=== PATIENT | female | born 1955 | race Caucasian/White ===

== ENCOUNTER → 2016-05-23 | Outpatient (CLI) | payer BC ==
[~2016-05-23] MED LIST: ONDA4TAB10 SL; TRAZ50TA35 PO
[2016-05-23 13:59] LABS: ALT/SGPT 19 U/L (12-78); AST/SGOT 14 U/L (15-37); BLOOD UREA NITROGEN 14 mg/dl (7-18); BUN/CREATININE RATIO 15.3 (10-20); CALCIUM 9.2 mg/dl (8.5-10.1); CARBON DIOXIDE 29 mmol/L (21-32); CHLORIDE 107 mmol/L (98-107); CREATININE 0.91 mg/dl (0.60-1.20); GLUCOSE 95 mg/dl (70-99); POTASSIUM 4.5 mmol/L (3.5-5.1); SODIUM 141 mmol/L (136-145)
[2016-05-23 14:01] LABS: CHOLESTEROL 201 mg/dl (0-200); CHOLESTEROL/HDL RATIO 3.7; HDL CHOLESTEROL 55 mg/dl; LDL CHOLESTEROL CALCULATED 122 mg/dl; PHOSPHORUS 3.8 mg/dl (2.5-4.9); TRIGLYCERIDES 120 mg/dl (0-150); VERY LOW DENSITY LIPOPROT CALC 24 mg/dl
== END | disposition home or self-care (01) ==
LOC: C.LABMFLN 07:43
PROVIDERS: ATTEND Family Medicine
DX: E78.5 Hyperlipidemia, unspecified (principal)

== ENCOUNTER 2016-11-01 23:09 | Emergency (ER) | payer BC ==
[~2016-11-01] VITALS: Ht 154.9 cm; Wt 61.9 kg
[2016-11-01 23:17] VITALS: TEMP 37; Ht 154.9 cm; Wt 61.9 kg
[2016-11-01] MEDS ORDERED: ONDANSETRON INJ 2 MG/ML 2 ML VIAL IV STA (23:30)
[2016-11-01] MEDS ORDERED: MoRPHine SULFATE 4 MG/ML 1 ML CARP\\VIAL IV STA (23:30)
[2016-11-01] MEDS ORDERED: SODIUM CHLORIDE 0.9% 1000ML 1,000 ML IV STA (23:30)
[2016-11-01] MEDS ORDERED: OPTIRAY 320 IV PRN (23:45)
[2016-11-01 23:53] LABS: BASO % 0.1 %; BASO ABS # 0.01 K/uL (0-0.2); COMPLETE YES; EOS % 0.4 %; HEMATOCRIT 39.1 % (37-47); IG% 0.2 %; LYMPH % 7.8 %; LYMPH ABS # 0.78 K/uL (1.2-3.4); MEAN CELL VOLUME 84.8 fL (80-100); MEAN CORPUSCULAR HEMOGLOBIN 28.4 pg (25-34); MEAN CORPUSCULAR HGB CONC 33.5 g/dl (32-36); MEAN PLATELET VOLUME 9.9 fL (7.4-10.4); MONO % 5.7 %; NEUT % 85.8 %; PLATELET COUNT 282 K/uL (130-400); RED BLOOD COUNT 4.61 M/uL (4.2-5.4); WHITE BLOOD COUNT 10.06 K/uL (4.8-10.8)
[2016-11-02] MEDS ORDERED: TRAZ50TA35 PO
[2016-11-02 00:10] LABS: BUN/CREATININE RATIO 12.4 (10-20); CALCIUM 8.9 mg/dl (8.5-10.1); CREATININE 0.96 mg/dl (0.60-1.20); POTASSIUM 4.2 mmol/L (3.5-5.1)
[2016-11-02 00:25] LABS: URINE APPEARANCE CLEAR (CLEAR); URINE BILIRUBIN NEG (NEG); URINE COLOR YELLOW; URINE NITRITE NEG (NEG); URINE SPECIFIC GRAVITY 1.012 (1.000-1.030); UROBILINOGEN NEG (NEG); ZZUR CULT IF INDIC CLEAN CATCH NO
[2016-11-02 00:29] LABS: MANUAL MICROSCOPIC REQUIRED? NO; REVIEW REQ? NO
[2016-11-02] MEDS ORDERED: PROMETHAZINE HCL INJ 12.5 MG in SODIUM CHLORIDE 0.9% 50ML 50 ML IV STA (00:36)
[2016-11-02] MEDS ORDERED: ONDA4TAB10 SL (01:53)
--- NOTE | 2016-11-02 01:55 | EMERGENCY ROOM VISIT NOTE ---
History First contact with patient: 23:23 Chief Complaint: GI ASSESSMENT Stated Complaint: ABD PAIN,DIARRHEA,NAUSEA Nursing Triage Summary: Patient reports she just returned from vacation and developed diarrhea, abdominal pain, and fever. Patient has been drinking water but denies taking anything for fever. History of Present Illness The patient is a 61 year old female who presents to the Emergency Room with complaints of diarrhea and abdominal pain. The patient states that she was recently on vacation to the [place]. For the past 2 days, she has had diarrhea. Today, she has had increased diarrhea and abdominal pain. She states that she had a fever 102F at home. She is nauseous without vomiting. She did not take any medications at home for her discomfort. She rates her discomfort a 9/10. She has been able to tolerate fluids. The patient denies any medical problems other than depression. She denies any history of abdominal surgery. She denies any urinary symptoms. Review of Systems A complete 10 point review of systems was reviewed with the patient with pertinent positives and negatives as per history of present illness. All else were negative. Social History Smoking Status: Never Smoker Current/Historical Medications Scheduled Ondasetron Odt (Zofran Odt), 4 MG SL Q6H Trazodone Hcl (Trazodone), 50 MG PO HS Allergies Coded Allergies: Erythromycin (Verified Allergy, Intermediate, GI SYMPTOMS, 11/01/16) Penicillins (Verified Allergy, Unknown, childhood allergy, 11/01/16) Physical Exam Vital Signs Date Time Temp Pulse Resp B/P (MAP) Pulse Ox O2 Delivery O2 Flow Rate FiO2 11/02/16 01:58 76 18 126/71 97 Room Air 11/02/16 01:26 67 18 107/51 96 Room Air 11/01/16 23:17 37.0 95 18 145/87 99 Room Air Physical Exam VITALS: Vitals are noted on the nurse's note and reviewed by myself. Vital signs stable. GENERAL: This is a 61-year-old female, in no acute distress but appears uncomfortable, nondiaphoretic, well-developed well-nourished. HEENT: Normocephalic. PERRLA. EOMI. Nares patent. Mucous membranes moist. Neck is supple without nuchal rigidity. HEART: Regular rate and rhythm without murmurs gallops or rubs. LUNGS: Clear to auscultation bilaterally without wheezes, rales or rhonchi. ABDOMEN: Positive bowel sounds x 4. Soft, mild tenderness to palpation over the right lower quadrant. No guarding or rebound tenderness. NEURO: Patient was alert and oriented to person place and time. Medical Decision & Procedures ER Provider Diagnostic Interpretation: CT ABDOMEN & PELVIS: Normal appendix. Fluid-filled enhancing small bowel as well as ascending to distal transverse colon may be liquefied stool with enteritis/colitis. No bowel obstruction. That a prominent liver. Cholecystectomy. Prominent CBD likely sequelae of cholecystectomy, correlate for acute process. No CT evidence of pancreatitis. No obstructive uropathy, tiny low density lesion right kidney. Mild thickening of the urinary bladder, correlate for cystitis. Bilateral pelvic tubal ligation. Mild bibasilar lung atelectasis. Grade 1 anterolisthesis of L4 on L5. Radiologist: Lluvia Dias MD Laboratory Results 11/01/16 23:40 Red Blood Count 4.61, Mean Corpuscular Volume 84.8, Mean Corpuscular Hemoglobin 28.4, Mean Corpuscular Hemoglobin Concent 33.5, Mean Platelet Volume 9.9, Neutrophils (%) (Auto) 85.8, Lymphocytes (%) (Auto) 7.8, Monocytes (%) (Auto) 5.7, Eosinophils (%) (Auto) 0.4, Basophils (%) (Auto) 0.1, Neutrophils # (Auto) 8.64, Lymphocytes # (Auto) 0.78, Monocytes # (Auto) 0.57, Eosinophils # (Auto) 0.04, Basophils # (Auto) 0.01 11/01/16 23:40 Test 11/01/16 23:35 11/01/16 23:40 Urine Color YELLOW Urine Appearance CLEAR (CLEAR) Urine pH 5.0 (4.5-7.5) Urine Specific [place] 1.012 (1.000-1.030) Urine Protein NEG (NEG) Urine Glucose (UA) NEG (NEG) Urine Ketones NEG (NEG) Urine Occult Blood NEG (NEG) Urine Nitrite NEG (NEG) Urine Bilirubin NEG (NEG) Urine Urobilinogen NEG (NEG) Urine Leukocyte Esterase NEG (NEG) White Blood Count 10.06 K/uL (4.8-10.8) Red Blood Count 4.61 M/uL (4.2-5.4) Hemoglobin 13.1 g/dL (12.0-16.0) Hematocrit 39.1 % (37-47) Mean Corpuscular Volume 84.8 fL (80-100) Mean Corpuscular Hemoglobin 28.4 pg (25-34) Mean Corpuscular Hemoglobin Concent 33.5 g/dl (32-36) Platelet Count 282 K/uL (130-400) Mean Platelet Volume 9.9 fL (7.4-10.4) Neutrophils (%) (Auto) 85.8 % Lymphocytes (%) (Auto) 7.8 % Monocytes (%) (Auto) 5.7 % Eosinophils (%) (Auto) 0.4 % Basophils (%) (Auto) 0.1 % Neutrophils # (Auto) 8.64 K/uL (1.4-6.5) Lymphocytes # (Auto) 0.78 K/uL (1.2-3.4) Monocytes # (Auto) 0.57 K/uL (0.11-0.59) Eosinophils # (Auto) 0.04 K/uL (0-0.5) Basophils # (Auto) 0.01 K/uL (0-0.2) RDW Standard Deviation 43.9 fL (36.4-46.3) RDW Coefficient of Variation 14.2 % (11.5-14.5) Immature Granulocyte % (Auto) 0.2 % Immature Granulocyte # (Auto) 0.02 K/uL (0.00-0.02) Anion Gap 10.0 mmol/L (3-11) Est Creatinine Clear Calc Drug Dose 50.6 ml/min Estimated GFR () 72.9 Estimated GFR (Non- 62.9 BUN/Creatinine Ratio 12.4 (10-20) Calcium Level 8.9 mg/dl (8.5-10.1) Total Bilirubin 1.2 mg/dl (0.2-1) Aspartate Amino Transf (AST/SGOT) 18 U/L (15-37) Alanine Aminotransferase (ALT/SGPT) 18 U/L (12-78) Alkaline Phosphatase 102 U/L (45-117) Total Protein 8.1 gm/dl (6.4-8.2) Albumin 4.1 gm/dl (3.4-5.0) Globulin 4.0 gm/dl (2.5-4.0) Albumin/Globulin Ratio 1.0 (0.9-2) Lipase 85 U/L (73-393) Medications Administered Medications (Trade) Dose Ordered Sig/Bridget Route Start Time Stop Time Status Last Admin Dose Admin Sodium Chloride 1,000 ml @ 999 mls/hr Q1H1M STAT IV 11/01/16 23:30 11/02/16 00:30 DC 11/01/16 23:49 999 MLS/HR Ondansetron HCl (Zofran Inj) 4 mg NOW STAT IV 11/01/16 23:30 11/01/16 23:32 DC 11/01/16 23:49 4 MG Morphine Sulfate (MoRPHine SULFATE INJ) 4 mg NOW STAT IV 11/01/16 23:30 11/01/16 23:32 DC 11/01/16 23:49 4 MG Promethazine HCl 12.5 mg/Sodium Chloride 50.5 ml @ 204 mls/hr NOW STAT IV 11/02/16 00:36 11/02/16 00:50 DC 11/02/16 00:51 204 MLS/HR ED Course The patient was evaluated as above. Labs were drawn and IV access was obtained. Patient was medicated with 1 L normal saline bolus, 4 mg morphine and 4 mg Zofran IV. Patient is ready for CT scan but is still nauseous. She was given 12.5 mg Phenergan IV. Patient was reevaluated and stated that she felt much better. Findings were discussed with the patient at this time. Discharge instructions were reviewed with the patient. The patient verbalized understanding of my assessment and treatment plan and was discharged home in good condition. Medical Decision Differential diagnosis includes bowel obstruction, gastroenteritis, colitis, diverticulitis, cholecystitis, pancreatitis, among others. The patient is a 61-year-old female who presents today complaining of diarrhea and abdominal pain. The patient did have moderate abdominal tenderness on exam. Labs revealed no leukocytosis, anemia or concerning electrolyte abnormalities. CT of the abdomen and pelvis was performed and showed evidence of a nonspecific enteritis. Patient was not able to provide a stool sample while she was here. She felt much better after IV hydration, pain medication and Zofran. She was given an order to have her stool tested as an outpatient at home. She will follow-up with her primary care provider this week. The patient's case was reviewed with Dr. Long, ED attending physician, who agreed with my assessment and treatment plan. Based on the patient's presentation and work up, I feel the patient is stable for outpatient treatment. The patient was educated to return to the emergency department for any worsening of their current condition or new/concerning symptoms. She will follow up with her PCP. Medication reconciliation: I attest that I have personally reviewed the patient 's current medication list. Blood pressure screening: Patient was found to have normal blood pressure on screening and does not require follow-up. Impression Primary Impression: Enteritis Departure Information Dispostion Home / Self-Care Condition GOOD Prescriptions Ondasetron Odt (ZOFRAN ODT) 4 Mg Tab 4 MG SL Q6H for Nausea, #15 TAB Prov: Noemy Chen .GENO 11/02/16 Referrals Linh Rubio M.D. (PCP) Patient Instructions My [facility] Additional Instructions Bring the lab order and stool specimen to the lab to have your stool tested. You have been prescribed Zofran to be used for any nausea or vomiting. Take as prescribed. For pain control, you can use the following [id number]-zfl-[id number] medicines (if >12 yo): - Regular strength (325mg/tab) Tylenol (acetaminophen) 2 tabs every 4-6 hours as needed. Do not exceed 12 tablets in a 24 hour period. Avoid taking more than 4 grams (4000 mg) of Tylenol per day. This includes any other sources of acetaminophen you may take on a regular basis. - Regular strength (200 mg/tab) Advil (ibuprofen) 1-2 tabs every 4-6 hours as needed. Do not exceed a dose of 3200 mg per day. Rest and drink plenty of fluids. Follow-up with your primary care provider on Thursday. Return to the emergency department with worsening abdominal pain, vomiting, worsening fevers or any other new/concerning symptoms.
[2016-11-02 01:58] VITALS: BP 126/71; PULSE 76; O2SAT 97
[2016-11-02] MEDS ORDERED: ONDANSETRON HOME PACK 4MG OD TAB PO ONE (02:00)
--- NOTE | 2016-11-02 07:49 | DIAGNOSTIC IMAGING REPORT ---
ABDOMEN AND PELVIS CT WITH IV CONTRAST CT DOSE: 323.61 mGy.cm HISTORY: Right lower quadrant abdominal pain. TECHNIQUE: Multiaxial CT images of the abdomen and pelvis were performed following the use of intravenous contrast. COMPARISON STUDY: None. FINDINGS: The lung bases are essentially clear. Cholecystectomy. The liver, spleen, adrenal glands, and pancreas are unremarkable. Normal left kidney. A 6 mm hypodense lesion within the lower pole the right kidney is too small to characterize. No hydronephrosis. No retroperitoneal lymphadenopathy. Mild thickening within the anterior wall the bladder. The uterus is unremarkable. Bilateral tubal ligation clips. Liquid stool within the proximal colon. Mild thickening and enhancement within the fluid-filled distal ileal loops. There may be mild thickening within a few the small bowel loops within the left side of the abdomen. Colonic diverticulosis. Normal appendix. IMPRESSION: 1 Areas of mildly thickened small bowel most pronounced within the distal ileum. There is also fluid-filled distal ileum and proximal colon. Findings favor a nonspecific enteritis. 2. Mild thickening of the urinary bladder. Correlate for cystitis. 3. Normal appendix. Electronically signed by: Maxwell Flores M.D. 11/02/2016 7:48 AM Dictated Date/Time: 11/02/2016 7:42 AM
== END 2016-11-02 01:59 | disposition home or self-care (01) ==
LOC: C.EDB 23:11 → C.EDC 11-02 01:59
DX: K52.9 Noninfective gastroenteritis and colitis, unspecified (principal); Z79.899 Other long term (current) drug therapy

== ENCOUNTER → 2016-11-03 | Outpatient (CLI) | payer BC ==
[2016-11-05 19:40] LABS: O&P GIARDIA AG NOT DETECTED (NOT DETECTED)
--- NOTE | 2016-11-25 07:33 | CODING QUERY NO DIAGNOSIS ---
TREATMENT RENDERED WITHOUT A DIAGNOSIS To promote full compliance with coding requirements relating to patient care, physician participation is requested in all cases of hr business partner consultant uncertainty. Please assist us with providing a diagnosis/symptom for the test(s) below: A diagnosis/symptom was not documented on your Order. A valid diagnosis/symptom is required to bill all insurances. Please remember that we are unable to code a diagnosis of rule out, probable, possible, questionable, or suspected. Tests that require a diagnosis: * GIARDIA AG, STOOL DIAGNOSIS: * STOOL CULTURE DIAGNOSIS: * CDIFF TOXIN B GENE DIAGNOSIS: Provider Signature: Date: Thank you Lis Early [employer] Once completed, please kindly fax back to [phone] For questions please call [phone]
== END | disposition home or self-care (01) ==
LOC: C.LABMFLN 14:49
PROVIDERS: ATTEND Physician Assistant
DX: R19.7 Diarrhea, unspecified (principal)

== ENCOUNTER → 2016-12-31 | Outpatient (CLI) | payer BC ==
--- NOTE | 2017-01-01 14:05 | MAMMOGRAPHY REPORT ---
BILATERAL DIGITAL SCREENING MAMMOGRAM TOMOSYNTHESIS WITH CAD: 12/31/2016 CLINICAL HISTORY: Routine screening. Patient has no complaints. TECHNIQUE: Breast tomosynthesis in addition to standard 2D mammography was performed. Current study was also evaluated with a Computer Aided Detection (CAD) system. COMPARISON: Comparison is made to exams dated: 12/12/2015 mammogram, 10/23/2014 mammogram, 04/27/2013 m ammogram - [facility], 07/24/2010 mammogram, and 01/23/2010 mammogram - [facility]. BREAST COMPOSITION: There are scattered areas of fibroglandular density in both breasts. FINDINGS: No suspicious masses, calcifications, or areas of architectural distortion are noted in ei ther breast. There has been no significant interval change compared to prior exams. IMPRESSION: ACR BI-RADS CATEGORY 1: NEGATIVE There is no mammographic evidence of malignancy. A 1 year screening mammogram is recommended. The pa tient will receive written notification of the results. Approximately 10% of breast cancers are not detected with mammography. A negative mammographic report should not delay biopsy if a clinically suggestive mass is present. Mary Saez M.D. ah/:12/31/2016 15:55:00 International Marketing Coordinator: Lisy LEARY(Clare)(M), [facility] letter sent: Normal 1/2 BI-RADS Code: ACR BI-RADS Category 1: Negative
== END | disposition home or self-care (01) ==
LOC: C.MAMM 13:38
PROVIDERS: ATTEND Family Medicine
DX: Z12.31 Encounter for screening mammogram for malignant neoplasm of breast (principal)

== ENCOUNTER → 2017-05-08 | Outpatient (CLI) | payer BC ==
[~2017-05-08] MED LIST changes: -ONDA4TAB10 SL
[2017-05-08 13:10] LABS: BASO % 0.9 %; BASO ABS # 0.03 K/uL (0-0.2); COMPLETE YES; EOS % 3.4 %; IG% 0.3 %; LYMPH % 37.5 %; LYMPH ABS # 1.31 K/uL (1.2-3.4); MEAN CELL VOLUME 86.8 fL (80-100); MEAN CORPUSCULAR HEMOGLOBIN 29.7 pg (25-34); MEAN CORPUSCULAR HGB CONC 34.3 g/dl (32-36); MEAN PLATELET VOLUME 9.7 fL (7.4-10.4); MONO % 7.2 %; NEUT % 50.7 %; PLATELET COUNT 246 K/uL (130-400); RED BLOOD COUNT 4.61 M/uL (4.2-5.4); WHITE BLOOD COUNT 3.49 K/uL (4.8-10.8)
[2017-05-08 13:48] LABS: CHOLESTEROL/HDL RATIO 3.7
== END | disposition home or self-care (01) ==
LOC: C.LABMFLN 09:26
PROVIDERS: ATTEND Family Medicine
DX: Z13.0 Encounter for screening for diseases of the blood and blood-forming organs and certain disorders involving the immune mechanism (principal); E78.5 Hyperlipidemia, unspecified

== ENCOUNTER → 2017-09-10 | Outpatient (CLI) | payer BC ==
--- NOTE | 2017-09-10 12:23 | DIAGNOSTIC IMAGING REPORT ---
CHEST 2 VIEWS ROUTINE CLINICAL HISTORY: R05 Chronic [id number] COMPARISON STUDY: No previous studies for comparison. FINDINGS: The cardiac and mediastinal contours are normal. There is no evidence of focal pulmonary consolidation. There is no evidence of failure. No pleural effusions are visualized.[ IMPRESSION: No active disease in the chest. Electronically signed by: Carlos Coffey M.D. 09/10/2017 12:22 PM Dictated Date/Time: 09/10/2017 12:22 PM
--- NOTE | 2017-09-10 12:24 | DIAGNOSTIC IMAGING REPORT ---
SINUSES MIN 3 VIEWS ROUTINE CLINICAL HISTORY: R05 Chronic [id number] COMPARISON STUDY: No previous studies for comparison. FINDINGS: There are no air-fluid levels to indicate acute sinusitis. There is no significant mucoperiosteal thickening. IMPRESSION: No conventional radiographic evidence of sinusitis Electronically signed by: Carlos Coffey M.D. 09/10/2017 12:22 PM Dictated Date/Time: 09/10/2017 12:22 PM
[2017-09-10 13:18] LABS: BASO % 0.7 %; BASO ABS # 0.03 K/uL (0-0.2); EOS ABS # 0.08 K/uL (0-0.5); HEMOGLOBIN 13.9 g/dL (12.0-16.0); IG# 0.01 K/uL (0.00-0.02); LYMPH % 38.9 %; LYMPH ABS # 1.57 K/uL (1.2-3.4); MEAN CELL VOLUME 89.3 fL (80-100); MEAN CORPUSCULAR HGB CONC 34.8 g/dl (32-36); MONO % 11.4 %; MONO ABS # 0.46 K/uL (0.11-0.59); NEUT % 46.8 %; NEUT ABS # 1.89 K/uL (1.4-6.5); PLATELET COUNT 256 K/uL (130-400); RED CELL DISTRIBUTION WIDTH SD 42.4 fL (36.4-46.3); WHITE BLOOD COUNT 4.04 K/uL (4.8-10.8)
[2017-09-10 14:48] LABS: ALT/SGPT 20 U/L (12-78); AST/SGOT 19 U/L (15-37); BLOOD UREA NITROGEN 11 mg/dl (7-18); CALCIUM 9.3 mg/dl (8.5-10.1); CARBON DIOXIDE 26 mmol/L (21-32); CREATININE 0.96 mg/dl (0.60-1.20); GLUCOSE 89 mg/dl (70-99); SODIUM 138 mmol/L (136-145)
[2017-09-10 14:59] LABS: ALKALINE PHOSPHATASE 104 U/L (45-117); TOTAL PROTEIN 7.9 gm/dl (6.4-8.2)
== END | disposition home or self-care (01) ==
LOC: C.RAD1850 11:57
PROVIDERS: ATTEND Family Medicine
DX: R05 Cough (principal)